=== PATIENT | female | born 1950 | race Caucasian/White ===

== ENCOUNTER → 2017-01-26 | Outpatient (CLI) | payer MEDICARE, BC | LOC: MAMMO 13:03 | DX: Z12.31 Encounter for screening mammogram for malignant neoplasm of breast (principal) | CPT/HCPCS: G0202 ==

== ENCOUNTER → 2017-01-26 | Outpatient (CLI) | payer MEDICARE, BC | LOC: RAD 13:00 | DX: Z13.820 Encounter for screening for osteoporosis (principal); M81.0 Age-related osteoporosis without current pathological fracture ==

== ENCOUNTER → 2019-04-04 | Outpatient (CLI) | payer MEDICARE, BC | LOC: RAD 10:02 → MAMMO 10:45 | DX: Z13.820 Encounter for screening for osteoporosis (principal); M81.0 Age-related osteoporosis without current pathological fracture ==

== ENCOUNTER → 2019-04-04 | Outpatient (CLI) | payer MEDICARE, BC | LOC: MAMMO 09:59 | DX: Z12.31 Encounter for screening mammogram for malignant neoplasm of breast (principal) ==

== ENCOUNTER → 2019-08-28 | Outpatient (CLI) | payer MEDICARE, BC | LOC: RAD 13:12 | DX: M25.552 Pain in left hip (principal); M79.652 Pain in left thigh ==

== ENCOUNTER → 2020-05-01 | Outpatient (CLI) | payer MEDICARE, BC | LOC: MAMMO 04-10 13:45 | DX: Z12.31 Encounter for screening mammogram for malignant neoplasm of breast (principal) ==

== ENCOUNTER → 2021-06-10 | Outpatient (CLI) | payer MEDICARE, BC | LOC: MAMMO 14:30 | DX: Z12.31 Encounter for screening mammogram for malignant neoplasm of breast (principal) ==

== ENCOUNTER → 2021-06-10 | Outpatient (CLI) | payer MEDICARE, BC | LOC: MAMMO 14:36 | DX: M81.0 Age-related osteoporosis without current pathological fracture (principal) ==

== ENCOUNTER 2021-08-19 14:28 | Emergency (ER) | payer MEDICARE, BC ==
[~2021-08-19] VITALS: Ht 167.6 cm; Wt 88.2 kg
[2021-08-19 15:47] LABS: BASO # 0.04 K/mm3 (0.02-0.10); EOS # 0.02 K/mm3 (0.04-0.40); EOS % 0.2 % (1.0-5.0); HEMATOCRIT 43.1 % (37.0-47.0); LYMPH# 0.72 K/mm3 (1.50-4.00); MEAN CELL VOLUME 86 fl (78-100); MEAN CORPUSCULAR HEMOGLOBIN 28 pg (27-31); MEAN CORPUSCULAR HGB CONC 33 g/dL (33-37); MEAN PLATELET VOLUME 9.1 fl (7.4-10.4); MONO # 0.76 K/mm3 (0.20-0.80); NEU # 6.81 K/mm3 (1.40-6.50); PLATELET COUNT 151 K/mm3 (130-400); RED BLOOD COUNT 5.01 M/mm3 (4.10-5.30); RED CELL DISTRIBUTION WIDTH 13.2 % (11.5-14.5); WHITE BLOOD COUNT 8.4 K/mm3 (4.8-10.8)
[2021-08-19 15:59] LABS: ALBUMIN 4.1 g/dL (3.4-4.8)
[2021-08-19 16:00] LABS: CALCIUM 9.4 mg/dL (8.3-10.5)
[2021-08-19 16:03] LABS: TOTAL PROTEIN 7.8 g/dL (6.2-8.1)
[2021-08-19 16:05] LABS: TOTAL BILIRUBIN 0.5 mg/dL (0.2-1.2)
[2021-08-19 16:17] LABS: TROPONIN-I 0.138 ng/mL (<0.030)
[2021-08-19] MEDS ORDERED: PREGABALIN300 MG PO (16:33)
[2021-08-19] MEDS ORDERED: ACETAMINOPHEN-H1 TA2 PO (16:34)
[2021-08-19] MEDS ORDERED: DURAGESIC25 MCG/PAT TD (16:34)
[2021-08-19] MEDS ORDERED: DESYREL50 MG PO (16:35)
[2021-08-19] MEDS ORDERED: CALCIUM CARBON600 M4 PO (16:36)
[2021-08-19] MEDS ORDERED: PEPCID COMPLET1 EACH PO (16:36)
[2021-08-19] MEDS ORDERED: [UNRECOGNIZED DRUG - OTHER] OU (16:37)
[2021-08-19] MEDS ORDERED: ADVIL 200MG TA200 MG PO (16:38)
[2021-08-19] MEDS ORDERED: PREPARATION H O28 GM RC (16:39)
[2021-08-19] MEDS ORDERED: NATURE'S BLEND400 IU PO (16:40)
[2021-08-19 16:46] LABS: URINE APPEARANCE CLEAR; URINE BILIRUBIN NEGATIVE (NEGATIVE); URINE BLOOD 50 ery/uL (NEGATIVE); URINE COLOR YELLOW; URINE GLUCOSE NEGATIVE (NEGATIVE); URINE KETONE NEGATIVE (NEGATIVE); URINE NITRATE NEGATIVE (NEGATIVE); URINE PROTEIN(semi-quant) 1+ (NEGATIVE); URINE UROBILINOGEN NORMAL (NORMAL)
[2021-08-19 16:47] LABS: URINE LEUKOCYTE ESTERASE NEGATIVE (NEGATIVE); URINE WBC 0-1 /hpf (0-3)
[2021-08-19 17:02] LABS: D-DIMER 35.11 mg/L FEU (0.15-0.50)
[2021-08-19 18:25] LABS: PARTIAL THROMBOPLASTIN TIME 26.6 SECONDS (21.0-32.0)
[2021-08-19 20:04] VITALS: BP 145/78
== END 2021-08-19 20:04 | disposition short-term general hospital (02) ==
LOC: ED 14:28
PROVIDERS: Physician Assistant
DX: D68.51 Activated protein C resistance (principal); I26.99 Other pulmonary embolism without acute cor pulmonale; Z20.822 Contact with and (suspected) exposure to COVID-19
CPT/HCPCS: J1650

== ENCOUNTER 2022-04-02 11:08 | Outpatient (RCR) | payer MEDICARE, BC ==
[~2022-04-02 11:08] MED LIST: ACETAMINOPHEN-H1 TA2 PO; ADVIL 200MG TA200 MG PO; CALCIUM CARBON600 M4 PO; DESYREL50 MG PO; DURAGESIC25 MCG/PAT TD; NATURE'S BLEND400 IU PO; PEPCID COMPLET1 EACH PO; PREGABALIN300 MG PO; PREPARATION H O28 GM RC; [UNRECOGNIZED DRUG - OTHER] OU
== END 2022-04-08 | disposition home or self-care (01) ==
LOC: PT
DX: M79.651 Pain in right thigh (principal)

== ENCOUNTER 2022-04-14 15:45 | Outpatient (RCR) | payer MEDICARE, BC | END 2022-05-05 14:28 | disposition still patient (30) | LOC: PT 15:45 | DX: M79.651 Pain in right thigh (principal) ==

== ENCOUNTER → 2022-07-21 | Outpatient (CLI) | payer MEDICARE, BC | LOC: MAMMO 13:00 | DX: Z12.31 Encounter for screening mammogram for malignant neoplasm of breast (principal) ==

== ENCOUNTER → 2023-07-19 | Day surgery (SDC) | payer MEDICARE, BC | END | disposition home or self-care (01) | LOC: MSO 09:09 | DX: Z12.11 Encounter for screening for malignant neoplasm of colon (principal); K63.5 Polyp of colon; K57.30 Diverticulosis of large intestine without perforation or abscess without bleeding | CPT/HCPCS: 00811; J2704; J3010; J7120 ==

== ENCOUNTER → 2023-08-05 | Outpatient (CLI) | payer MEDICARE, BC | LOC: MAMMO 14:50 | DX: Z12.31 Encounter for screening mammogram for malignant neoplasm of breast (principal); M81.0 Age-related osteoporosis without current pathological fracture ==

== ENCOUNTER → 2023-09-14 | Outpatient (CLI) | payer MEDICARE, BC | LOC: RAD 11:28 | DX: Z01.818 Encounter for other preprocedural examination (principal) ==

== ENCOUNTER → 2024-03-22 | Outpatient (CLI) | payer MEDICARE, BC | LOC: RAD 11:28 | DX: R93.89 Abnormal findings on diagnostic imaging of other specified body structures (principal); Z98.890 Other specified postprocedural states ==

== ENCOUNTER → 2024-04-04 | Outpatient (CLI) | payer MEDICARE, BC ==
[~2024-04-04] MED LIST changes: +Iohexol 300 - 100 ML VIAL IV ONE
== END ==
LOC: RAD 13:00
DX: R93.89 Abnormal findings on diagnostic imaging of other specified body structures (principal); Z96.611 Presence of right artificial shoulder joint
CPT/HCPCS: Q9967

== ENCOUNTER → 2024-08-07 | Outpatient (CLI) | payer MEDICARE, BC ==
[~2024-08-07] MED LIST changes: -Iohexol 300 - 100 ML VIAL IV ONE
== END ==
LOC: MAMMO 14:57
DX: Z12.31 Encounter for screening mammogram for malignant neoplasm of breast (principal)

== ENCOUNTER → 2024-11-22 | Outpatient (CLI) | payer MEDICARE, BC | LOC: RAD 08:32 | DX: R22.1 Localized swelling, mass and lump, neck (principal); R19.00 Intra-abdominal and pelvic swelling, mass and lump, unspecified site ==